=== PATIENT | male | born 1990 | race African-American/Black ===

== ENCOUNTER 2017-08-01 17:00 | Emergency (ER) | payer SELFPAY ==
[~2017-08-01] VITALS: Ht 190.5 cm; Wt 83.9 kg
[~2017-08-01 17:00] MED LIST: CLARITIN10 MG PO; PROVENTIL0.09 MG/AC IH; TRIMOX500 MG PO
[2017-08-01 18:03] LABS: BASO % 0.4 % (0.0-1.0); EOS # 0.1 10*3/uL (0.0-0.4); EOS % 1.3 % (1.0-4.0); HEMATOCRIT 40.7 % (42.0-52.0); HEMOGLOBIN 12.8 g/dl (14.0-18.0); LYMPH # 2.2 10*3/uL (1.3-4.4); MEAN CELL VOLUME 77.7 fl (80.0-94.0); MEAN CORPUSCULAR HGB 24.4 pg (27.0-31.0); MEAN CORPUSCULAR HGB CONC 31.4 g/dl (33.0-37.0); MEAN PLATELET VOLUME 9.4 fl (9.6-12.3); MONO # 0.6 10*3/uL (0.1-1.0); NEUT # 1.8 10*3/uL (2.3-7.9); NEUT % 39.1 % (47.0-73.0); PLATELET COUNT AUTOMATED 260 10*3/uL (130-400); RED BLOOD COUNT 5.24 10*6/uL (4.50-5.90); RED CELL DISTRI WIDTH 12.9 % (0-14.5); WHITE BLOOD COUNT 4.7 10*3/uL (4.8-10.8)
[2017-08-01 18:19] LABS: ALBUMIN 3.7 gm/dl (3.1-4.5); ALKALINE PHOSPHATASE 54 U/L (45-117); BUN 8 mg/dl (7-24); CHLORIDE 107 mmol/L (98-107); CREATININE 1.11 mg/dL (0.70-1.30); LIPASE 127 U/L (73-393); POTASSIUM 4.2 mmol/L (3.5-5.1); SGOT/AST 14 IU/L (3-35); SGPT/ALT 22 U/L (12-78); SODIUM 141 mmol/L (136-145); TOTAL PROTEIN 7.8 gm/dL (6.4-8.2)
[2017-08-01 19:22] LABS: BILIRUBIN NEGATIVE (NEGATIVE); BLOOD NEGATIVE (NEGATIVE); CLARITY SL CLOUDY (CLEAR); COLOR YELLOW (YELLOW); GLUCOSE NEGATIVE (NEGATIVE); KETONE NEGATIVE (NEGATIVE); LEUKO ESTERASE NEGATIVE (NEGATIVE); NITRITE NEGATIVE (NEGATIVE); PH 5.5 (5.0-9.0); UROBILINOGEN 0.2 E.U./dl (0.2-1.0)
[2017-08-01 19:27] LABS: BACTERIA TRACE; MUCOUS 1+
[2017-08-01 19:28] LABS: EPITHELIAL CELLS 0-2
[2017-08-01] MEDS ORDERED: BENTYL10 MG PO (19:53)
== END 2017-08-01 21:04 | disposition home or self-care (01) ==
LOC: ED 17:00
PROVIDERS: Physician Assistant
DX: R10.13 Epigastric pain (principal); R10.84 Generalized abdominal pain; R19.7 Diarrhea, unspecified; F17.200 Nicotine dependence, unspecified, uncomplicated

== ENCOUNTER 2017-08-02 04:32 | Emergency (ER) | payer SELFPAY ==
[~2017-08-02] VITALS: Ht 190.5 cm; Wt 83.9 kg
[~2017-08-02 04:32] MED LIST changes: +BENTYL10 MG PO
== END 2017-08-02 05:21 | disposition home or self-care (01) ==
LOC: ED 04:32
DX: R51 Headache (principal); Z79.899 Other long term (current) drug therapy

== ENCOUNTER 2017-08-06 18:20 | Emergency (ER) | payer SELFPAY ==
[~2017-08-06] VITALS: Ht 264.1 cm; Wt 83.9 kg
[2017-08-06 19:07] LABS: BILIRUBIN NEGATIVE (NEGATIVE); BLOOD NEGATIVE (NEGATIVE); CLARITY CLEAR (CLEAR); COLOR YELLOW (YELLOW); GLUCOSE NEGATIVE (NEGATIVE); KETONE NEGATIVE (NEGATIVE); LEUKO ESTERASE NEGATIVE (NEGATIVE); NITRITE NEGATIVE (NEGATIVE); PH 5.5 (5.0-9.0); SPECIFIC GRAVITY 1.015 (1.005-1.030); UROBILINOGEN 0.2 E.U./dl (0.2-1.0)
[2017-08-06 19:12] LABS: BACTERIA TRACE; EPITHELIAL CELLS 0-2; MUCOUS TRACE; RBC 0-2 rbc/hpf (0-2)
== END 2017-08-06 19:30 | disposition home or self-care (01) ==
LOC: ED 18:20
PROVIDERS: Physician Assistant
DX: R30.0 Dysuria (principal); Z79.899 Other long term (current) drug therapy

== ENCOUNTER 2017-08-09 11:06 | Emergency (ER) | payer SELFPAY ==
[~2017-08-09] VITALS: Ht 190.5 cm; Wt 83.9 kg
[2017-08-09] MEDS ORDERED: NAPROSYN500 MG PO (11:16)
[2017-08-09] MEDS ORDERED: PENICILLIN VK500 MG PO (11:16)
[2017-08-09] MEDS ORDERED: Peridex 473 ML473 ML PO (11:16)
== END 2017-08-09 12:28 | disposition home or self-care (01) ==
LOC: ED 11:06
DX: K12.0 Recurrent oral aphthae (principal); R03.0 Elevated blood-pressure reading, without diagnosis of hypertension

== ENCOUNTER 2017-08-12 21:06 | Emergency (ER) | payer SELFPAY ==
[~2017-08-12] VITALS: Ht 190.5 cm; Wt 83.9 kg
[~2017-08-12 21:06] MED LIST changes: +NAPROSYN500 MG PO; +PENICILLIN VK500 MG PO; +Peridex 473 ML473 ML PO
== END 2017-08-12 21:35 | disposition home or self-care (01) ==
LOC: ED 21:06
DX: K13.79 Other lesions of oral mucosa (principal)

== ENCOUNTER 2017-08-14 17:26 | Emergency (ER) | payer SELFPAY ==
[~2017-08-14] VITALS: Ht 190.5 cm; Wt 83.9 kg
== END 2017-08-14 19:02 | disposition home or self-care (01) ==
LOC: ED 17:26
DX: K14.8 Other diseases of tongue (principal)

== ENCOUNTER 2017-08-17 09:38 | Emergency (ER) | payer SELFPAY ==
[~2017-08-17] VITALS: Ht 190.5 cm; Wt 83.9 kg
== END 2017-08-17 09:59 | disposition home or self-care (01) ==
LOC: ED 09:38
DX: R23.4 Changes in skin texture (principal); F17.200 Nicotine dependence, unspecified, uncomplicated; F10.10 Alcohol abuse, uncomplicated

== ENCOUNTER 2019-11-24 09:22 | Emergency (ER) | payer MEDICAID ==
[~2019-11-24] VITALS: Ht 190.5 cm; Wt 95.3 kg
[2019-11-24] MEDS ORDERED: DOXYCYCLINE100 M3 PO (09:43)
[2019-11-24 10:21] LABS: BACTERIA 1+; BILIRUBIN NEGATIVE (NEGATIVE); BLOOD NEGATIVE (NEGATIVE); CLARITY SL CLOUDY (CLEAR); COLOR YELLOW (YELLOW); GLUCOSE NEGATIVE (NEGATIVE); KETONE NEGATIVE (NEGATIVE); LEUKO ESTERASE NEGATIVE (NEGATIVE); MUCOUS 2+; NITRITE NEGATIVE (NEGATIVE); SPECIFIC GRAVITY 1.025 (1.005-1.030); UROBILINOGEN 0.2 E.U./dl (0.2-1.0)
== END 2019-11-24 10:35 | disposition home or self-care (01) ==
LOC: ED 09:22
PROVIDERS: Physician Assistant
DX: Z20.2 Contact with and (suspected) exposure to infections with a predominantly sexual mode of transmission (principal); F17.200 Nicotine dependence, unspecified, uncomplicated

== ENCOUNTER → 2020-02-16 | Emergency (ER) | payer MEDICAID ==
[~2020-02-16] VITALS: Ht 190.5 cm; Wt 79.4 kg
[~2020-02-16] MED LIST changes: +DOXYCYCLINE100 M3 PO
== END ==
LOC: ED 12:06
DX: Z03.818 Encounter for observation for suspected exposure to other biological agents ruled out (principal)

== ENCOUNTER 2020-02-21 12:42 | Emergency (ER) | payer MEDICAID ==
[~2020-02-21] VITALS: Ht 190.5 cm; Wt 83.9 kg
[2020-02-21 14:12] LABS: BILIRUBIN NEGATIVE (NEGATIVE); BLOOD NEGATIVE (NEGATIVE); CLARITY CLEAR (CLEAR); COLOR YELLOW (YELLOW); GLUCOSE NEGATIVE (NEGATIVE); KETONE NEGATIVE (NEGATIVE); PH 7.5 (5.0-9.0); SPECIFIC GRAVITY 1.015 (1.005-1.030)
[2020-02-21 14:13] LABS: LEUKO ESTERASE TRACE (NEGATIVE); NITRITE NEGATIVE (NEGATIVE)
[2020-02-21 14:43] LABS: BACTERIA TRACE
== END 2020-02-21 13:40 | disposition home or self-care (01) ==
LOC: ED 12:42
PROVIDERS: Nurse Practitioner
DX: A64 Unspecified sexually transmitted disease (principal); A63.0 Anogenital (venereal) warts

== ENCOUNTER 2020-02-26 15:50 | Emergency (ER) | payer SELFPAY ==
[~2020-02-26] VITALS: Ht 190.5 cm; Wt 95.3 kg
== END 2020-02-26 16:50 | disposition home or self-care (01) ==
LOC: ED 15:50
DX: A74.9 Chlamydial infection, unspecified (principal); F17.200 Nicotine dependence, unspecified, uncomplicated; Z79.899 Other long term (current) drug therapy

== ENCOUNTER 2020-03-28 21:54 | Emergency (ER) | payer SELFPAY ==
[~2020-03-28] VITALS: Wt 79.4 kg
[2020-03-29] MEDS ORDERED: BENADRYL ALLERG25 M5 PO (04:31)
[2020-03-29] MEDS ORDERED: PEPCID20 MG PO (04:31)
[2020-03-29] MEDS ORDERED: PREDNISONE10 M1 PO (04:31)
[2020-03-29 04:36] LABS: BASO % 0.5 % (0.0-1.0); EOS % 0.2 % (1.0-4.0); HEMATOCRIT 44.9 % (42.0-52.0); MEAN CELL VOLUME 79.9 fl (80.0-94.0); MEAN CORPUSCULAR HGB CONC 30.1 g/dl (33.0-37.0); MEAN PLATELET VOLUME 9.3 fl (9.6-12.3); MONO # 0.1 10*3/uL (0.1-1.0); MONO % 0.9 % (3.0-9.0); NEUT # 5.4 10*3/uL (2.3-7.9); NEUT % 82.9 % (47.0-73.0); PLATELET COUNT AUTOMATED 319 10*3/uL (130-400); RED BLOOD COUNT 5.62 10*6/uL (4.50-5.90); RED CELL DISTRI WIDTH 12.5 % (0-14.5); WHITE BLOOD COUNT 6.5 10*3/uL (4.8-10.8)
[2020-03-29 04:54] LABS: ALBUMIN 3.9 gm/dl (3.1-4.5); ALKALINE PHOSPHATASE 59 U/L (45-117); BUN 11 mg/dl (7-24); CHLORIDE 107 mmol/L (98-107); CREATININE 1.16 mg/dL (0.70-1.30); POTASSIUM 4.8 mmol/L (3.5-5.1); SGOT/AST 14 IU/L (3-35); SGPT/ALT 34 U/L (12-78); SODIUM 137 mmol/L (136-145); TOTAL PROTEIN 8.6 gm/dL (6.4-8.2)
== END 2020-03-29 04:57 | disposition left against medical advice (07) ==
LOC: ED 21:54
PROVIDERS: Emergency Medicine
DX: T78.3XXA Angioneurotic edema, initial encounter (principal); F17.200 Nicotine dependence, unspecified, uncomplicated

== ENCOUNTER 2020-04-08 06:33 | Emergency (ER) | payer SELFPAY ==
[~2020-04-08] VITALS: Ht 190.5 cm; Wt 95.3 kg
[~2020-04-08 06:33] MED LIST changes: +BENADRYL ALLERG25 M5 PO; +PEPCID20 MG PO; +PREDNISONE10 M1 PO
== END 2020-04-08 07:47 | disposition home or self-care (01) ==
LOC: ED 06:33
DX: H10.9 Unspecified conjunctivitis (principal)

== ENCOUNTER 2020-11-13 11:34 | Emergency (ER) | payer BC ==
[~2020-11-13] VITALS: Wt 95.3 kg
== END 2020-11-13 12:45 | disposition left against medical advice (07) ==
LOC: ED 11:34
DX: K13.79 Other lesions of oral mucosa (principal); Z53.21 Procedure and treatment not carried out due to patient leaving prior to being seen by health care provider

== ENCOUNTER 2020-12-14 14:23 | Emergency (ER) | payer BC ==
[~2020-12-14] VITALS: Wt 90.7 kg
[2020-12-14] MEDS ORDERED: NYST SUSP PO (16:00)
== END 2020-12-14 16:35 | disposition home or self-care (01) ==
LOC: ED 14:23
DX: F12.90 Cannabis use, unspecified, uncomplicated (principal); F41.9 Anxiety disorder, unspecified; Z79.899 Other long term (current) drug therapy